=== PATIENT | male | born 1965 | race Caucasian/White ===

== ENCOUNTER 2019-07-11 09:08 | Day surgery (SDC) | payer BC ==
[2019-07-11 08:58] LABS: Absolute Lymphocytes (CBC) 1.2 K/uL (0.7-4.9); Basophils % 0.7 % (0-1.3); Hematocrit 38.1 % (39.6-49.0); Lymphocytes % 17.8 % (15.3-44.8); MPV 7.8 fL (7.6-11.3); RBC Red Blood Cell Count 4.13 M/uL (4.33-5.43); Urine Appearance CLEAR; Urine Bilirubin NEGATIVE (NEG); Urine Blood 2+ (NEG); Urine Color YELLOW; Urine Glucose TRACE (NEG); Urine Protein 3+ (NEG); Urine Specific Gravity 1.015 (1.005-1.030); Urine Urobilinogen 0.2 mg/dL (0.2-1.0); Urine pH 5.5 (5.0-7.0)
[2019-07-11 09:04] LABS: Protime INR 0.93; Urine Microscopic Reflex ORDER UMIC
--- OUTSIDE RECORDS SUMMARY | 2019-07-11 09:11 | XMS REPORT ---
:1965 Author Organization [facility] Address [address] [place] [address] Dr. Pompa [address] [place] [id number] Care Team Providers Name Role Phone Unavailable Unavailable Unavailable Problems This patient has no known problems. Allergies, Adverse Reactions, Alerts This patient has no known allergies or adverse reactions. Medications This patient has no known medications. Encounters Start End Encounter Admission Attending Care Care Encounter Date/Time Date/Time Type Type Clinicians Facility Department ID 2019-05-30 2019-05-30 Outpatient [id number] 10:00:00 10:00:00 2019-05-30 2019-05-30 Outpatient [id number] 09:44:00 09:44:00 2019-05-23 2019-05-22 Inpatient E [id number] 15:51:00 13:37:00 2019-04-06 2019-04-06 Outpatient [id number] 06:41:00 06:41:00
[2019-07-11 09:13] LABS: Albumin 3.3 g/dL (3.4-5.0); Phosphorus 3.3 mg/dL (2.5-4.9); Potassium 4.7 mmol/L (3.5-5.1); Uric Acid 7.4 mg/dL (3.5-7.2)
[2019-07-11 09:14] LABS: Urine Bacteria <20 /HPF (NONE SEEN); Urine Culture Reflex Order REFLEXED; Urine Mucus LIGHT /HPF (NONE SEEN); Urine RBC 20-50 /HPF (NONE SEEN)
[2019-07-11] MEDS ORDERED: NA CHLORIDE 0.9% 1,000 ML ONE (09:16)
[2019-07-11 09:50] VITALS: BMI 32.1
[2019-07-11] MEDS ORDERED: FENTANYL CITR 100 MCG/2 ML ONE ×2 (10:02→10:04)
[2019-07-11] MEDS ORDERED: MIDAZOLAM HCL 2 MG/2 ML INJ ONE ×2 (10:02→10:03)
[2019-07-11] MEDS ORDERED: NALOXONE 0.4 MG/ML VIAL ONE (10:03)
[2019-07-11] MEDS ORDERED: FLUMAZENIL 0.1 MG/ML (5 mL VIAL) IV ONE (10:03)
--- NOTE | 2019-07-11 13:14 | RAD REPORT ---
EXAM DESCRIPTION: US - Biopsy Renal - 07/11/2019 12:19 pm CLINICAL HISTORY: Z01.818, N39.0renal ultrasound June 23, 2019 COMPARISON: Renal Ultrasound-Complete dated 06/23/2019 TECHNIQUE: Patient presents for image guided biopsy of the kidneys to assess acute nephrotic syndrom e an abnormal renal function. The patient's PT/PTT/ INR and platelet values within acceptable limits for biopsy. Patient had no con traindicated allergy or medication history. The ultrasound-guided renal biopsy procedure, risks and alternatives were discussed with the patient in detail. After answering all questions, both oral and written consent were obtained. Time out proce dure was performed. IV access and physiologic monitors were in place. Patient was monitored throughout the procedure by n [facility] cancer centering personnel. Patient was normotensive throughout the examination. Preliminary imaging identified access to the lower pole of the left kidney. The patient was in an obl ique prone position on the table. Posterior left flank access site was selected. Patient was pre-medi cated with Versed said 1.0 milligrams IV and fentanyl 100 micrograms IV. Skin was prepped and draped in the usual sterile fashion. Skin and deeper tissues were anesthetized with 1% lidocaine. Under sonographic visualization a 17 gauge introducer needle was advanced through the left flank tiss ues. Tip was placed near the posterior margin lower pole left kidney. An 18 gauge biopsy needle was t hen advanced through the introducer needle. The tip of the biopsy needle was placed at the posterior lower margin. There were 3 core biopsies obtained through the lower pole region. All tissue was retai rashmi and given to pathology for assessment. Introducer needle was withdrawn. Direct pressure was applied to the access site. Post biopsy imaging showed no identifiable retroperitoneal hemorrhage. Sterile bandage was placed to the puncture site. Phuong howell was transferred back to same-day surgery for post biopsy monitoring. Patient vital signs were stable throughout the procedure. Patient was awake and alert at the end of t he procedure and complained of no pain. Conscious sedation time was 30 minutes. IMPRESSION: Ultrasound-guided biopsy of the lower pole left kidney was performed as detailed. There were 3 cores obtained and all tissue was given to pathology for assessment.
[2019-07-11 13:56] VITALS: BP 138/67; TEMP 97.8; O2SAT 97
== END 2019-07-11 14:22 | disposition home or self-care (01) ==
LOC: DS 09:08
PROVIDERS: ATTEND Internal Medicine
DX: E11.21 Type 2 diabetes mellitus with diabetic nephropathy (principal); N39.0 Urinary tract infection, site not specified; Z01.818 Encounter for other preprocedural examination; N17.9 Acute kidney failure, unspecified; D50.9 Iron deficiency anemia, unspecified; R79.1 Abnormal coagulation profile
CPT/HCPCS: 87088; 85025; 80048; 36415; 84100; 85610; 84550; 88300; 85730; 82040; 50200; J2250 ×2; J3010 ×2; J7030; 81003; 81015; 87086; J2310

== ENCOUNTER 2020-07-03 09:08 | Day surgery (SDC) | payer BC ==
[2020-07-02 14:21] LABS: Basophils % 0.5 % (0-1.3); Hematocrit 40.8 % (39.6-49.0); Lymphocytes % 7.8 % (15.3-44.8); MPV 8.5 fL (7.6-11.3)
[2020-07-02 14:35] LABS: Potassium 4.7 mmol/L (3.5-5.1)
--- NOTE | 2020-07-02 14:41 | RAD REPORT ---
EXAM DESCRIPTION: RAD - Chest Pa And Lat (2 Views) - 07/02/2020 2:24 pm CLINICAL HISTORY: PREOP, pending drainage of soft tissue neck abscess COMPARISON: None TECHNIQUE: Frontal and lateral views of the chest were obtained. FINDINGS: The lungs are clear. Linear atelectasis or scarring seen in the left base. Heart size is normal and central vasculature is within normal limits. No pleural effusion or pneumothorax seen. N o acute bony finding noted. No aortic abnormality. IMPRESSION: No acute cardiopulmonary process.
[2020-07-03] MEDS ORDERED: INSULIN -REGULAR HUMAN 50 UNIT/0.5 ML ML ONE (09:42)
[2020-07-03] MEDS ORDERED: NA CHLORIDE 0.9% 1,000 ML ONE (09:44)
[2020-07-03] MEDS ORDERED: CEFAZOLIN/SWI 1gm 1 GM/10 ML SYR ONE (09:45)
[2020-07-03] MEDS ORDERED: propofoL 200 MG/20 ML VIAL IV ONE (10:12)
[2020-07-03] MEDS ORDERED: MIDAZOLAM HCL 2 MG/2 ML INJ ONE (10:13)
[2020-07-03] MEDS ORDERED: dexAMETHasone 10 MG/ML VIAL ONE (10:13)
[2020-07-03] MEDS ORDERED: FENTANYL CITR 100 MCG/2 ML ONE (10:13)
[2020-07-03] MEDS ORDERED: LIDOCAINE 2% MPF 5 ML VIAL ONE (10:13)
[2020-07-03] MEDS ORDERED: ONDANSETRON 4 MG/2 ML VIAL ONE (10:42)
--- NOTE | 2020-07-03 10:47 | P.BOP ---
Preoperative diagnosis: complex post neck abscess with cellulitis Postoperative diagnosis: same Primary procedure: I &D complex post neck abscess with excisional debridement necrotic tissue Secondary procedure: 9x8cm Estimated blood loss: <10cc Specimen: necrotic tissue, culture Findings: complex abscess Anesthesia: General Complications: None Drain(s): Other (packing) Transferred to: Recovery Room Condition: Good
[2020-07-03] MEDS ORDERED: KETOROLAC 30 MG/ML INJ ONE (11:02)
--- NOTE | 2020-07-03 11:31 | OP ---
Date of Procedure: 07/03/2020 Surgeon: Alex Hill MD Preoperative Diagnosis: Complex posterior neck abscess with cellulitis. Postoperative Diagnosis: Complex posterior neck abscess with cellulitis. Procedure: Incision and drainage of complex posterior neck abscess with excisional debridement of ne crotic tissue area about 9 x 8 cm. Estimated Blood Loss: Less than 10 mL. Specimen: Necrotic tissue, culture of the pus. Anesthesia: General plus local. Packing: Wet-to-dry. Indications: This is a case of a male, who comes to us with a large area of cellulitis on the break out man ior neck with a large abscess. The patient fully explained the benefits, alternatives, and risks of incision and drainage of posterior neck abscess. There might be some necrotic tissue. We may have t o do excisional debridement of it. He understood he may require wound care after the surgery most sapphire rodriguez. Benefits alternatives, and risks were fully explained which include, but not limited to infect ion, bleeding, damage to adjacent structures, anesthesia complication, nonhealing wound, CT, and even . He also understands this may not relieve symptoms. He might need more than one surgical int ervention. He understood, signed a consent. His family feels comfortable doing dressing changes aft er the procedure. Procedure In Detail: The patient was brought to the operating room, placed supine position. Anesthe dylan was done without complication and the patient was placed in lateral decubitus position with prope r protection. Posterior neck area was prepped and draped in a sterile fashion. Local anesthesia was applied followed by then a wedge incision of the skin. There was some necrotic tissue in the middle , so we have to remove all the necrotic tissue that led us into an abscess with multiple loculations. They were all explored open. The area of the abscess is about 9 x 8 cm. Cultures were obtained of the pus. Necrotic tissue was removed, debrided subcutaneously. The area was irrigated, hemostasis obtained, and the area was packed with wet-to-dry dressing. The patient tolerated the procedure well . The patient was sent to recovery in stable condition. LADY/PARVEZ Voice ID: [id number] Report ID: [id number]
--- NOTE | 2020-07-03 11:34 | OP ---
Surgeon: Alex Hill MD Diagnosis: Complex abscess posterior neck. Procedure: Incision and drainage with excisional debridement of posterior neck complex abscess. Disposition: Home. Activity: As tolerated, no heavy lifting. Plan: Follow up in my office in 1 week. Call for an appointment at [phone]. Wet-to-dry dressing wit h normal saline daily. LADY/PARVEZ Voice ID: [id number] Report ID: [id number]
[2020-07-03 12:43] VITALS: BP 105/56; TEMP 97.4
[2020-07-03 12:46] VITALS: O2SAT 97
--- NOTE | 2020-07-04 05:18 | EKG ---
Test Date: 2020-07-02 Test Time: 13:58:27 Technician Terminal And Repeater: TOBIN MEASUREMENT RESULTS: Intervals: Rate: 99 NV: 144 QRSD: 88 QT: 348 QTc: 446 [place]: P: 59 NV: 144 QRS: 11 T: 55 INTERPRETIVE STATEMENTS: Normal sinus rhythm Possible Left atrial enlargement Borderline ECG No previous ECG available for comparison Electronically Signed On 07-04-20 05:11:57 [employer] SERVIC[employer] by Jordan James
== END 2020-07-03 12:32 | disposition home or self-care (01) ==
LOC: OR 09:08
PROVIDERS: ATTEND Surgery
PROC: 0JB50ZZ Excision of Left Neck Subcutaneous Tissue and Fascia, Open Approach (ICD-10-PCS; principal; 2020-07-03 11:15)
DX: L02.11 Cutaneous abscess of neck (principal); L03.221 Cellulitis of neck; E11.9 Type 2 diabetes mellitus without complications; I10 Essential (primary) hypertension; E78.00 Pure hypercholesterolemia, unspecified; Z20.822 Contact with and (suspected) exposure to COVID-19
CPT/HCPCS: 93005; 87070; 85025; 80048; 36415 ×2; 82947 ×5; 87205; 88304; 87075; 87077; 87186; 71046; 11042; 11045 ×3; U0003; J2704; J2250; J3010; J0690; J7030; J2405; J1100

== ENCOUNTER 2020-07-19 09:56 | Day surgery (SDC) | payer BC ==
[2020-07-19 09:12] LABS: Absolute Lymphocytes (CBC) 0.9 K/uL (0.7-4.9); Basophils % 0.3 % (0-1.3); Hematocrit 35.9 % (39.6-49.0); Lymphocytes % 6.6 % (15.3-44.8); MPV 7.7 fL (7.6-11.3); RBC Red Blood Cell Count 3.99 M/uL (4.33-5.43)
[2020-07-19 09:17] LABS: Potassium 4.3 mmol/L (3.5-5.1)
[2020-07-19] MEDS ORDERED: ACETAMINOPHEN 500 MG TAB ONE (11:08)
[2020-07-19] MEDS ORDERED: CELECOXIB 100 MG CAPSULE ONE (11:08)
[2020-07-19] MEDS ORDERED: NA CHLORIDE 0.9% 1,000 ML ONE (11:21)
[2020-07-19] MEDS ORDERED: LIDOCAINE 1% MPF 30 ML VIAL ONE (11:49)
[2020-07-19] MEDS ORDERED: FENTANYL CITR 100 MCG/2 ML ONE (12:02)
[2020-07-19] MEDS ORDERED: MIDAZOLAM HCL 2 MG/2 ML INJ ONE (12:02)
[2020-07-19] MEDS ORDERED: propofoL 200 MG/20 ML VIAL IV ONE (12:02)
[2020-07-19] MEDS ORDERED: LIDOCAINE 2% MPF 5 ML VIAL ONE (12:03)
[2020-07-19] MEDS ORDERED: CIPROFLOXACIN 400mg IV 400 MG/200 ML BAG IV ONE (12:35)
--- NOTE | 2020-07-19 12:45 | P.BOP ---
Preoperative diagnosis: cellulitis/abscess right posterolateral neck, infected subQ mass 5x5cm Postoperative diagnosis: same Primary procedure: 1. Excisional biopsy of infected post-lat neck subQ mass Secondary procedure: 2. Incision and drainage of abscess right posterolateral neck Estimated blood loss: <10c Specimen: pus Findings: see dicta Anesthesia: General Complications: None Transferred to: Recovery Room Condition: Good
[2020-07-19 15:02] VITALS: BP 119/65; TEMP 97; O2SAT 95
--- NOTE | 2020-07-19 16:07 | DS ---
Date of Discharge: 07/19/2020 Diagnosis: Infected posterior lateral right side subcutaneous mass with abscess. Disposition: Home. Activity: As tolerated. No heavy lifting. Plan: Follow up in my office in 1 week. Call for an appointment at [phone]. He is going to continu e doing the same dressings that he is doing on the opposite side of neck, which is wet-to-dry daily. Medications: He is already on Cipro and he already has his pain medication, also saline. LADY/PARVEZ Voice ID: [id number] Report ID: [id number]
--- NOTE | 2020-07-19 16:07 | OP ---
Date of Procedure: 07/19/2020 Surgeon: Alex Hill MD Preoperative Diagnoses: Cellulitis; abscess; right posterior lateral neck abscess with infected subc utaneous mass; 5 x 5 cm. Postoperative Diagnoses: Cellulitis; abscess; right posterior lateral neck abscess with infected sub cutaneous mass; 5 x 5 cm. Procedure Performed: Excisional biopsy of infected posterior lateral neck subcutaneous mass with inc ision and drainage of abscess. Anesthesia: General plus local. Findings: The patient has a mass deep in the subcutaneous tissue, right sitting on top of the muscle and that is associated with more superficial abscess. Both of them were taken care of today. Complications: None. Indications: This is a case of a male, known by us since few weeks ago. He has cellulitis of the op posite side on the left side. This is an abscess large that have to be taken care of with incision a nd drainage. It should be noted Wound Care is doing fantastic. Now, he has a new area on the right side. This grew up fast. He claimed he think he had a mass there before, but never took care of it. Now, it is all this induration with purulent discharge coming through it different from the previou s area. The previous area's cellulitis has completely done. This is a few centimeters apart. So, suzette gonzalez offered him incision and drainage, possible mass removal with benefits, alternatives, and risks inc luding, but not limited to infection, bleeding, damage to adjacent structures, anesthesia complicatio n, NV and even . He also understands he may require wound care. We saw him a few hours ago in my office. The hospital was kind enough to allow us to do this emergently and he was booked in OR. Description Of Procedure: The patient was brought to the operating room, placed supine in position. Anesthesia was done without complication. The patient was placed in lateral decubitus position with proper protection. Neck area was prepped and draped in a sterile fashion. Local anesthesia was frida lied after time-out. Then, we proceeded to make an incision. When we made an incision, we found thi s abscess forming area. The area was about 5 x 5 cm and base of that abscess was a large subcutaneou s mass going down to the fascia of the muscle which had to be removed with the mass itself. Muscle w as left intact. The area was irrigated. Hemostasis was obtained. Local anesthesia was applied and then the area was covered with wet to dry dressing. The patient tolerated the procedure well. [facility]. LADY/PARVEZ Voice ID: [id number] Report ID: [id number]
== END 2020-07-19 14:50 | disposition home or self-care (01) ==
LOC: OR 09:56
PROVIDERS: ATTEND Surgery
PROC: 0JB40ZZ Excision of Right Neck Subcutaneous Tissue and Fascia, Open Approach (ICD-10-PCS; principal; 2020-07-19 13:45)
DX: L72.0 Epidermal cyst (principal); L03.221 Cellulitis of neck; Z20.822 Contact with and (suspected) exposure to COVID-19
CPT/HCPCS: 87070; 85025; 80048; 36415; 87205; 82947 ×2; 88304; 87075; 87077; 87186; 11426; U0003; J2704; J2250; J3010; J7030; J0744